=== PATIENT | male | born 1955 | race Caucasian/White ===

== ENCOUNTER → 2016-06-19 | Outpatient (CLI) | payer BC ==
[~2016-06-19] MED LIST: ALFUZOSIN HCL10 MG PO; ATORVASTATIN CA20 MG PO; B COMPLETE1 EACH PO; KRILL OIL500 MG PO; NASONEX17 GM BOTH NARES; PROBIOTIC1 EAC1 PO; VITAMIN D32000 UNI1 PO
== END | disposition home or self-care (01) ==
LOC: CDC 08:38
DX: Z01.810 Encounter for preprocedural cardiovascular examination (principal)
CPT/HCPCS: 93000